=== PATIENT | female | born 1985 | race Caucasian/White ===

== ENCOUNTER → 2016-07-06 | Outpatient (CLI) | payer OTHER ==
[~2016-07-06] MED LIST: IBUP-1547 PO; IOHEXOL 180 MG/ML 20ml INJECTION ONE; ONDA4TAB4 PO
--- NOTE | 2016-07-06 13:51 | DI ---
Indication:ITS.REASON: Z30.49 Encounter for surveillance of other contraceptives Procedure:HYSTEROSALPINGOGRAM W/CONTRAST HYSTEROSALPINGOGRAM: Informed consent was obtained prior to the procedure. All of her questions were answered. She stated that she understood and wished to proceed. A hysterosalpingogram was then performed without complication. Following this the patient left the radiology department in good condition. Findings: A single Essure implant is seen in the right fallopian tube. The device has occluded the right fallopian tube. No contrast is seen distal to the implanted device. The left fallopian tube was not visualized. The patient states that her left ovary and a portion of the left fallopian tube are surgically absent. No implanted device is seen on the left side. The remainder of the HSG is negative. The intrauterine contour is normal in appearance. Impression: 1. 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 2. 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 No implanted device is seen on the left side. Fluoroscopy dose: 12.46 mGy (Cumulative air kerma) Rosendo Hummel RPA/ALONSO performed this under my personal supervision. .
== END ==
LOC: IMA 10:21
PROVIDERS: ATTEND Obstetrics & Gynecology
DX: Z30.49 Encounter for surveillance of other contraceptives (principal); Z97.5 Presence of (intrauterine) contraceptive device
CPT/HCPCS: 36415; 58340; 74740; 84702; Q9965